=== PATIENT | female | born 2000 | race African-American/Black ===

== ENCOUNTER 2023-09-18 14:38 | Emergency (ER) | payer MEDICAID ==
[~2023-09-18] VITALS: Ht 160 cm; Wt 122.5 kg
[2023-09-18 14:41] VITALS: O2SAT 100
[2023-09-18 15:03] LABS: BASOPHILS % 0.6 % (0.0-2.0); EOSINOPHILS % 1.7 % (0.0-5.0); HEMATOCRIT. 40.8 % (36.0-48.0); HEMOGLOBIN. 13.5 g/dL (12.0-16.0); LYMPHOCYTES % 19.3 % (20.0-50.0); MEAN CORPUSCULAR HEMOGLOBIN 29.1 pg (28.0-32.0); MEAN CORPUSCULAR HGB CONC 33.2 g/dL (31.0-37.0); MEAN CORPUSCULAR VOLUME 87.6 fL (81.0-99.0); MEAN PLATELET VOLUME 7.8 fl (7.4-10.4); NEUTROPHILS % 73.4 % (40.0-76.0); PLATELET 396 x1000/uL (130-400); RED BLOOD CELL COUNT 4.65 mill/uL (4.2-5.4); RED CELL DISTRIBUTION WIDTH 14.2 % (11.6-14.6); WHITE BLOOD COUNT 12.6 x1000/uL (4.5-11.0)
[2023-09-18 15:18] LABS: ALANINE AMINOTRANSFERASE 24 IU/L (10-49); ALBUMIN 4.5 g/dL (3.2-4.8); ASPARTATE AMINOTRANSFERASE 16 IU/L (<34); BILIRUBIN TOTAL 0.2 mg/dL (0.1-1.0); CALCIUM 9.5 mg/dL (8.7-10.4); CARBON DIOXIDE 23 mEq/L (21-32); CHLORIDE 106 mEq/L (98-107); CREATININE 0.8 mg/dL (0.6-1.0); GLUCOSE 129 mg/dL (70-105); POTASSIUM 3.9 mEq/L (3.5-5.1); PROTEIN TOTAL 7.4 g/dL (6.0-8.3); SODIUM 137 mEq/L (136-145); UREA NITROGEN BLOOD 8 mg/dL (9-23)
[2023-09-18 15:20] LABS: TROPONIN I HIGH SENSITIVITY < 4 ng/L (3.0-34)
[2023-09-18 15:35] LABS: CLARITY URINE TURBID (CLEAR); COLOR URINE RED (YELLOW); GLUCOSE URINE NEGATIVE (NEGATIVE); KETONES URINE NEGATIVE (NEGATIVE); LEUKOCYTE ESTERASE URINE 3+ (NEGATIVE); NITRITE URINE POSITIVE (NEGATIVE); OCCULT BLOOD URINE 2+ (NEGATIVE); PROTEIN URINE 2+ (NEGATIVE); SPECIFIC GRAVITY URINE 1.032 (1.005-1.030); UROBILINOGEN URINE 0.2 E.U./dL (0.2-1.0)
[2023-09-18 15:47] LABS: BACTERIA URINE 1+; RBC URINE 50-100 /hpf (0-2); SQUAMOUS EPITHELIAL CELL URINE 1+ /lpf (RARE/1+)
[2023-09-18] MEDS ORDERED: CEPH500T MT (18:23)
[2023-09-18] MEDS: ONDANSETRON HCL 4MG TABLET PO ONE (18:30)
[2023-09-18] MEDS: KETOROLAC 15MG/ML VIAL IM ONE (18:30)
[2023-09-18] MEDS: CEFTRIAXONE SODIUM 500MG VIAL IM ONE (19:16)
[2023-09-18 19:32] VITALS: BP 139/75; PULSE 90; RESP 17; TEMP 98.2
== END 2023-09-18 19:32 | disposition home or self-care (01) ==
LOC: ER 14:38
DX: R07.89 Other chest pain (principal); N39.0 Urinary tract infection, site not specified
CPT/HCPCS: 80053; 81003; 81025; 85025; 84484; 36415; 71045; 93005; 96372; 99285; Q0162; J0696; J1885; Z7610 ×2

== ENCOUNTER 2024-03-07 11:52 | Emergency (ER) | payer MEDICAID ==
[~2024-03-07] VITALS: Ht 160 cm; Wt 122.0 kg
[~2024-03-07 11:52] MED LIST: CEPH500T MT
[2024-03-07 11:57] VITALS: BP 146/89; TEMP 98.4; O2SAT 97
[2024-03-07 12:01] VITALS: PULSE 109; RESP 18; O2SAT 96
[2024-03-07] MEDS: ONDANSETRON 4MG ODT PO STA (12:50)
[2024-03-07] MEDS: LORAZEPAM 1MG TABLET PO ONE (13:00)
[2024-03-07 13:17] LABS: BASOPHILS % 0.9 % (0.0-2.0); EOSINOPHILS % 0.9 % (0.0-5.0); HEMATOCRIT. 38.9 % (36.0-48.0); HEMOGLOBIN. 12.8 g/dL (12.0-16.0); MEAN CORPUSCULAR HEMOGLOBIN 29.2 pg (28.0-32.0); MEAN CORPUSCULAR VOLUME 88.4 fL (81.0-99.0); MEAN PLATELET VOLUME 7.9 fl (7.4-10.4); MONOCYTES % 5.8 % (2.0-8.0); NEUTROPHILS % 75.4 % (40.0-76.0); PLATELET 457 x1000/uL (130-400); RED BLOOD CELL COUNT 4.41 mill/uL (4.2-5.4); RED CELL DISTRIBUTION WIDTH 14.2 % (11.6-14.6); WHITE BLOOD COUNT 10.9 x1000/uL (4.5-11.0)
[2024-03-07 13:26] LABS: CARBON DIOXIDE 26 mEq/L (21-32); CHLORIDE 105 mEq/L (98-107); POTASSIUM 4.1 mEq/L (3.5-5.1); SODIUM 138 mEq/L (136-145)
[2024-03-07 13:32] LABS: GLUCOSE 107 mg/dL (70-105); UREA NITROGEN BLOOD 7 mg/dL (9-23)
[2024-03-07 13:44] LABS: HCG SCREEN NEGATIVE
[2024-03-07 14:20] LABS: CLARITY URINE CLOUDY (CLEAR); COLOR URINE ORANGE (YELLOW); GLUCOSE URINE NEGATIVE (NEGATIVE); KETONES URINE NEGATIVE (NEGATIVE); LEUKOCYTE ESTERASE URINE 1+ (NEGATIVE); NITRITE URINE NEGATIVE (NEGATIVE); OCCULT BLOOD URINE 3+ (NEGATIVE); PROTEIN URINE 1+ (NEGATIVE); SPECIFIC GRAVITY URINE 1.035 (1.005-1.030); UROBILINOGEN URINE 0.2 E.U./dL (0.2-1.0)
[2024-03-07 14:53] LABS: BACTERIA URINE TRACE; RBC URINE TNTC /hpf (0-2); SQUAMOUS EPITHELIAL CELL URINE 1+ /lpf (RARE/1+)
[2024-03-07 14:54] LABS: WBC URINE 0-2 /hpf (0-2)
[2024-03-07] MEDS ORDERED: LORA-250 MT (15:41)
== END 2024-03-07 16:07 | disposition home or self-care (01) ==
LOC: ER 11:52
DX: R11.2 Nausea with vomiting, unspecified (principal); R53.1 Weakness; I10 Essential (primary) hypertension; M86.8X8 Other osteomyelitis, other site
CPT/HCPCS: 99283; 80048; 81003; 81025; 84703; 85025; 36415; Q0162

== ENCOUNTER 2024-03-17 13:01 | Emergency (ER) | payer SELFPAY ==
[~2024-03-17] VITALS: Ht 170.2 cm; Wt 70.0 kg
[~2024-03-17 13:01] MED LIST changes: +LORA-250 MT
[2024-03-17 13:20] VITALS: BP 129/91; PULSE 102; RESP 18; TEMP 36.83628; O2SAT 99
[2024-03-17 15:02] LABS: BASOPHILS % 0.7 % (0.0-2.0); EOSINOPHILS % 1.5 % (0.0-5.0); HEMOGLOBIN. 12.6 g/dL (12.0-16.0); LYMPHOCYTES % 20.1 % (20.0-50.0); MEAN CORPUSCULAR HEMOGLOBIN 29.1 pg (28.0-32.0); MEAN CORPUSCULAR VOLUME 88.2 fL (81.0-99.0); MEAN PLATELET VOLUME 8.2 fl (7.4-10.4); MONOCYTES % 4.1 % (2.0-8.0); NEUTROPHILS % 73.6 % (40.0-76.0); PLATELET 437 x1000/uL (130-400); RED BLOOD CELL COUNT 4.31 mill/uL (4.2-5.4); RED CELL DISTRIBUTION WIDTH 13.9 % (11.6-14.6); WHITE BLOOD COUNT 11.1 x1000/uL (4.5-11.0)
[2024-03-17 15:06] LABS: CHLORIDE 106 mEq/L (98-107); POTASSIUM 3.7 mEq/L (3.5-5.1); SODIUM 138 mEq/L (136-145)
[2024-03-17 15:07] LABS: CARBON DIOXIDE 26 mEq/L (21-32)
[2024-03-17 15:08] LABS: CALCIUM 9.3 mg/dL (8.7-10.4)
[2024-03-17 15:12] LABS: CREATININE 0.8 mg/dL (0.6-1.0); GLUCOSE 108 mg/dL (70-105)
[2024-03-17 15:13] LABS: UREA NITROGEN BLOOD 8 mg/dL (9-23)
[2024-03-17 15:55] LABS: ALANINE AMINOTRANSFERASE 26 IU/L (10-49); ALBUMIN 4.3 g/dL (3.2-4.8); ASPARTATE AMINOTRANSFERASE 20 IU/L (<34); BILIRUBIN TOTAL 0.2 mg/dL (0.1-1.0); PROTEIN TOTAL 7.4 g/dL (6.0-8.3)
[2024-03-17 15:58] LABS: BILIRUBIN DIRECT < 0.1 mg/dL (<=3.0); TROPONIN I HIGH SENSITIVITY < 4 ng/L (3.0-34)
[2024-03-17 15:59] LABS: ETHANOL BLOOD < 10 mg/dL (<10)
[2024-03-17 16:00] VITALS: TEMP 98.3
[2024-03-17] MEDS: ACETAMINOPHEN 325MG TABLET PO ONE (16:00)
[2024-03-17 16:28] LABS: HCG SCREEN NEGATIVE
[2024-03-17 16:57] LABS: CLARITY URINE CLOUDY (CLEAR); COLOR URINE YELLOW (YELLOW); GLUCOSE URINE NEGATIVE (NEGATIVE); KETONES URINE NEGATIVE (NEGATIVE); LEUKOCYTE ESTERASE URINE 3+ (NEGATIVE); NITRITE URINE NEGATIVE (NEGATIVE); OCCULT BLOOD URINE 3+ (NEGATIVE); PH URINE 6.5 (4.5-8.0); PROTEIN URINE TRACE (NEGATIVE); SPECIFIC GRAVITY URINE 1.024 (1.005-1.030)
[2024-03-17 17:12] LABS: BACTERIA URINE 4+; RBC URINE TNTC /hpf (0-2); SQUAMOUS EPITHELIAL CELL URINE 3+ /lpf (RARE/1+); WBC URINE TNTC /hpf (0-2)
[2024-03-17 17:19] LABS: *AMPHETAMINES SCREEN URINE NEGATIVE (NEGATIVE); *BARBITURATES SCREEN URINE NEGATIVE (NEGATIVE); *BENZODIAZEPINES SCREEN URINE NEGATIVE (NEGATIVE); *COCAINE SCREEN URINE NEGATIVE (NEGATIVE); METHADONE URINE SCREEN NEGATIVE (NEGATIVE)
[2024-03-17 17:20] LABS: CANNABINOID URINE SCREEN NEGATIVE (NEGATIVE); ECSTASY MDMA SCREEN URINE NEGATIVE (NEGATIVE); OPIATES URINE SCREEN NEGATIVE (NEGATIVE); PHENCYCLIDINE URINE SCREEN NEGATIVE (NEGATIVE)
[2024-03-17] MEDS ORDERED: ACET-2708 MT (17:38)
[2024-03-17] MEDS ORDERED: NITR100C MT (17:38)
[2024-03-17] MEDS: CEFTRIAXONE SODIUM 1G VIAL IM ONE (19:18)
[2024-03-17] MEDS: LIDOCAINE HCL 1% 20ML VIAL INFIL ONE (19:19)
== END 2024-03-17 19:29 | disposition home or self-care (01) ==
LOC: ER 13:01
DX: R07.89 Other chest pain (principal); N39.0 Urinary tract infection, site not specified; R51.9 Headache, unspecified; M79.10 Myalgia, unspecified site; R00.2 Palpitations; Z88.0 Allergy status to penicillin; Z79.899 Other long term (current) drug therapy
CPT/HCPCS: 80076; 80305; 80048; 81003; 81025; 80320; 84703; 83880; 83690; 85025; 85379; 87086; 84484; 36415; 71045; 70450; 93005; 96372; 99285; J0696; J3490; G0480

== ENCOUNTER 2024-07-09 09:50 | Emergency (ER) | payer MEDICAID ==
[~2024-07-09] VITALS: Ht 170.2 cm; Wt 110.0 kg
[~2024-07-09 09:50] MED LIST changes: +ACET-2708 MT; +NITR100C MT
[2024-07-09 09:58] VITALS: O2SAT 97
[2024-07-09 11:28] LABS: BASOPHILS % 0.4 % (0.0-2.0); EOSINOPHILS % 8.4 % (0.0-5.0); HEMATOCRIT. 37.7 % (36.0-48.0); HEMOGLOBIN. 12.5 g/dL (12.0-16.0); LYMPHOCYTES % 24.2 % (20.0-50.0); MEAN CORPUSCULAR HEMOGLOBIN 27.3 pg (28.0-32.0); MEAN CORPUSCULAR HGB CONC 33.1 g/dL (31.0-37.0); MEAN CORPUSCULAR VOLUME 82.5 fL (81.0-99.0); MEAN PLATELET VOLUME 8.3 fl (7.4-10.4); MONOCYTES % 6.4 % (2.0-8.0); NEUTROPHILS % 60.6 % (40.0-76.0); PLATELET 415 x1000/uL (130-400); RED BLOOD CELL COUNT 4.57 mill/uL (4.2-5.4); RED CELL DISTRIBUTION WIDTH 15.2 % (11.6-14.6); WHITE BLOOD COUNT 10.1 x1000/uL (4.5-11.0)
[2024-07-09 11:33] LABS: CHLORIDE 105 mEq/L (98-107); POTASSIUM 3.7 mEq/L (3.5-5.1); SODIUM 139 mEq/L (136-145)
[2024-07-09 11:34] LABS: CALCIUM 9.6 mg/dL (8.7-10.4); CARBON DIOXIDE 25 mEq/L (21-32)
[2024-07-09 11:39] LABS: CREATININE 0.9 mg/dL (0.6-1.0); GLUCOSE 106 mg/dL (70-105); UREA NITROGEN BLOOD 9 mg/dL (9-23)
[2024-07-09 11:41] LABS: ALANINE AMINOTRANSFERASE 34 IU/L (10-49); ALBUMIN 4.3 g/dL (3.2-4.8); ASPARTATE AMINOTRANSFERASE 22 IU/L (<34)
[2024-07-09 11:42] LABS: BILIRUBIN TOTAL 0.2 mg/dL (0.1-1.0); PROTEIN TOTAL 7.9 g/dL (6.0-8.3)
[2024-07-09 11:44] LABS: BILIRUBIN DIRECT < 0.1 mg/dL (<=3.0)
[2024-07-09 13:24] LABS: HCG SCREEN NEGATIVE
[2024-07-09] MEDS ORDERED: LACT10SO81 PO (14:27)
[2024-07-09] MEDS ORDERED: DOCU-422 MT (14:27)
[2024-07-09 14:32] VITALS: BP 138/70; PULSE 98; RESP 18; TEMP 37.05852; O2SAT 97
== END 2024-07-09 14:42 | disposition home or self-care (01) ==
LOC: ER 09:50
DX: K59.00 Constipation, unspecified (principal); I10 Essential (primary) hypertension; Z88.0 Allergy status to penicillin; Z98.890 Other specified postprocedural states
CPT/HCPCS: 36415; 74176; 80048; 80076; 81025; 84703; 85025; 99284